=== PATIENT | female | born 1995 | race Caucasian/White ===

== ENCOUNTER 2016-11-26 21:10 | Emergency (ER) | payer BC ==
[2016-11-26 21:26] VITALS: BP 137/80
[2016-11-26] MEDS ORDERED: traMADol TAB* 50 MG PO ONE (21:56)
--- NOTE | 2016-11-26 22:00 | UC ---
Headache HPI - HPI Summary HPI Summary: headache x 1 month no hx of headaches no known injury no n/v/d/c - History Of Current Complaint Chief Complaint: UCHeadache Stated Complaint: HEADACHE Time Seen by Provider: 11/26/16 21:45 Hx Obtained From: Patient, Family/Incoming Freight Clerk Hx Last Menstrual Period: 1 wk ago Onset/Duration: Gradual Onset, Lasting Weeks - 4, Still Present Onset Of Symptoms: Gradual Initially Headache Was: Moderate Timing: Constant Character: Dull Location of Headache: Diffuse Aggravating Factor: Nothing Allevating Factors: Nothing Associated Signs And Symptoms: Negative: Dizziness, Seizure, Nausea, Vomiting, Fever, Neck Pain, Neck Stiffness, Decreased LOC, Visual Changes, Other (Noted In Comments) - Allergies/Home Medications Allergies/Adverse Reactions: Allergies Allergy/AdvReac Type Severity Reaction Status Date / Time No Known Allergies Allergy Verified 11/26/16 21:19 Home Medications: Home Medications Ibuprofen TAB* [Advil TAB*] 400 mg PO Q6H PRN 11/26/16 [History Confirmed ] PMH/Surg Hx/FS Hx/Imm Hx Previously Healthy: Yes - Surgical History Surgical History: None - Family History Known Family History: Negative: Diabetes - Social History Alcohol Use: None Substance Use Type: Marijuana Substance Use Comment - Amount & Last Used: last used Wednesday Smoking Status (MU): Never Smoked Tobacco Review of Systems Constitutional: Negative Skin: Negative Eyes: Negative ENT: Negative Respiratory: Negative Neurological: Headache All Other Systems Reviewed And Are Negative: Yes Physical Exam Triage Information Reviewed: Yes Appearance: Well-Appearing, Pain Distress, Thin Vital Signs: Initial Vital Signs Temp 98.4 F 11/26/16 21:21 Pulse 72 11/26/16 21:21 Resp 16 11/26/16 21:21 BP 137/80 11/26/16 21:21 Pulse Ox 100 11/26/16 21:21 Eyes: Positive: Conjunctiva Clear ENT: Positive: Normal ENT inspection, Hearing grossly normal, Pharynx normal Neck: Positive: Supple, Nontender, No Lymphadenopathy Respiratory: Positive: Chest non-tender, Lungs clear, Normal breath sounds, No respiratory distress Cardiovascular: Positive: RRR, No Murmur, Pulses Normal Abdominal Exam: Normal Abdomen Description: Positive: Nontender Musculoskeletal Exam: Normal Musculoskeletal: Positive: Strength Intact, ROM Intact Neurological: Positive: Alert, Muscle Tone Normal Skin Exam: Normal UC Physical Exam Vital Signs On Initial Exam: Initial Vitals Temp Pulse Resp BP Pulse Ox 98.4 F 72 16 137/80 100 11/26/16 21:21 11/26/16 21:21 11/26/16 21:21 11/26/16 21:21 11/26/16 21:21 - Neurological Exam Neurological: Normal, Sensory/Motor Intact, Alert, Oriented to Person Place, Time, CN Intact II-III, Reflexes Intact, Normal Gait, Speech Normal Headache Course/Dx - Differential Dx/Diagnosis Provider Diagnoses: headache Discharge - Discharge Plan Condition: Stable Disposition: HOME Prescriptions: SUMAtriptan TAB* [Imitrex TAB*] 100 mg PO SEE INSTRUCTIONS #10 tab Patient Education Materials: Acute Headache (ED) Referrals: Non Staff,Doctor [Primary Care Provider] - 7 Days
== END 2016-11-26 22:18 | disposition home or self-care (01) ==
LOC: UCCORT 21:10
DX: R51 Headache (principal); F12.10 Cannabis abuse, uncomplicated
CPT/HCPCS: 99202; A9270-GY; G0463

== ENCOUNTER 2016-11-27 13:38 | Emergency (ER) | payer BC ==
[2016-11-27 14:26] VITALS: BP 122/74
[2016-11-27] MEDS ORDERED: Ondansetron ODT TAB* 4 MG PO ONE (14:47)
--- NOTE | 2016-11-27 14:58 | UC ---
Headache HPI - HPI Summary HPI Summary: 20 y/o female present to the urgent care accompany by mother c/o of nausea and vomiting since this morning. Pt reports she was seen here yesterday for headache, sent home w/ imitrex- took dose last night and unsure if it helped w/ headache. No longer c/o headache at this time. She states she has had 4 episode of bile vomiting. She denies fever, SOB, chest pain, dizziness, diarrhea or abdominal pain. She also states her headache is 3/10. She is concern that her headaches has been on and off for the past month. - History Of Current Complaint Chief Complaint: UCGeneralIllness Stated Complaint: vomitting,shakey Time Seen by Provider: 11/27/16 14:32 Hx Obtained From: Patient Hx Last Menstrual Period: 11/23/16 ?: No Onset/Duration: Sudden Onset, Lasting Hours, Still Present Currently Pain Is: Current Pain Scale(0-10)= - 3/10 Timing: Constant Character: Throbbing Location of Headache: Parietal Aggravating Factor: Nothing Allevating Factors: Rest Associated Signs And Symptoms: Positive: Nausea, Vomiting. Negative: Dizziness , Sinus Pressure, Fever, Neck Pain, Neck Stiffness, Visual Changes - Risk Factors SAH Risk Factors: Negative Meningitis Risk Factors: Negative SDH Risk Factors: Negative Temporal Arteritis Risk Factors: Negative - Allergies/Home Medications Allergies/Adverse Reactions: Allergies Allergy/AdvReac Type Severity Reaction Status Date / Time No Known Allergies Allergy Verified 11/27/16 14:17 PMH/Surg Hx/FS Hx/Imm Hx Previously Healthy: Yes Neurological History: Migraine - Surgical History Surgical History: Yes Surgery Procedure, Year, and Place: Tonsils - Family History Known Family History: Negative: Diabetes - Social History Occupation: Student Lives: With Family Alcohol Use: Rare Substance Use Type: Marijuana Substance Use Comment - Amount & Last Used: Last Wednesday Smoking Status (MU): Never Smoked Tobacco - Immunization History Most Recent Influenza Vaccination: NONE Most Recent Tetanus Shot: Unk Most Recent Pneumonia Vaccination: N/A Vaccination Up to Date: No Review of Systems Skin: Negative Eyes: Negative ENT: Negative Respiratory: Negative Cardiovascular: Negative Gastrointestinal: Vomiting Genitourinary: Negative Motor: Negative Neurovascular: Negative Musculoskeletal: Negative Neurological: Headache All Other Systems Reviewed And Are Negative: Yes Physical Exam Triage Information Reviewed: Yes Appearance: Well-Appearing, Well-Nourished - female mild distress since recently vomited, Thin Vital Signs: Initial Vital Signs Temp 98.7 F 11/27/16 14:19 Pulse 73 11/27/16 14:19 Resp 18 11/27/16 14:19 BP 122/74 11/27/16 14:19 Pulse Ox 100 11/27/16 14:19 Vital Signs Reviewed: Yes Eye Exam: Normal Eyes: Positive: Conjunctiva Clear ENT Exam: Normal ENT: Positive: Normal ENT inspection, Hearing grossly normal, Pharynx normal, TMs normal. Negative: Nasal congestion, Nasal drainage Neck exam: Normal Neck: Positive: Supple, Nontender, No Lymphadenopathy Respiratory Exam: Normal Respiratory: Positive: Chest non-tender, Lungs clear, Normal breath sounds Cardiovascular Exam: Normal Cardiovascular: Positive: RRR, No Murmur, Pulses Normal Abdominal Exam: Normal Abdomen Description: Positive: Nontender, No Organomegaly, Soft Bowel Sounds: Positive: Present Musculoskeletal Exam: Normal Neurological Exam: Normal Psychological Exam: Normal Skin Exam: Normal Headache Course/Dx - Course Course Of Treatment: Nausea and vomiting and Headache: Patient with 4 episodes of vomiting since this morning. Last episode while on the examining room. PT seen yesterday and Rx Imitrex and Advil for GUERRERO. Mild improvemnt of GUERRERO. Zofran SL 4mg PO given to patient. Pt tolerated well medication and after 20 min of observation, her symptoms improve. Rx Zofran prn. Pt instructed to increase fluid intake, rest and eat soft meals. To f/u with her PCP in [place] for furhter evaluation on her Headaches. Pt understood and agreed and left the clinic feeling better and ambulating. - Differential Dx/Diagnosis Differential Diagnosis/HQI/PQRI: Migraine, Sinus Headache, Tension Headache, Viral Syndrome, Other - vomiting Provider Diagnoses: Nausea, vomiting, headache. Discharge - Discharge Plan Condition: Stable Disposition: HOME Prescriptions: Ondansetron ODT TAB* [Zofran 4 MG Odt TAB*] 8 mg PO Q8H PRN #9 tab.odt PRN Reason: Vomiting Patient Education Materials: Acute Nausea and Vomiting (ED) Referrals: Non Staff,Doctor [Primary Care Provider] - Additional Instructions: Please continue taking Imitrex and advil for headache. Zofran 8mg has been sent to the pharmacy for vomiting. Please increase fluid intake and rest. Please follow up with your PCP in [place] for further evaluation on constant headaches. If symptoms worsen please return to the urgent care for furhter evaluation treatment.
== END 2016-11-27 15:19 | disposition home or self-care (01) ==
LOC: UCCORT 13:38
DX: R11.2 Nausea with vomiting, unspecified (principal); R51 Headache
CPT/HCPCS: 99212; A9270-GY; G0463